=== PATIENT | male | born 1945 | race Caucasian/White ===

== ENCOUNTER 2023-10-01 09:06 | Day surgery (SDC) | payer MEDICARE, SELFPAY ==
--- NOTE | 2023-09-28 10:48 | EKG12_ITS ---
Test Reason : PRE-OP Blood Pressure : / mmHG Vent. Rate : 066 BPM Atrial Rate : 066 BPM P-R Int : 144 ms QRS Dur : 080 ms QT Int : 406 ms P-R-T Axes : 031 -04 005 degrees QTc Int : 425 ms Sinus rhythm with marked sinus arrhythmia with occasional Premature ventricular complexes Otherwise normal ECG Confirmed by PRAMOD COOPER, CHINO ([id number]), fan mail editor KEKE PACHECO ([id number]) on 10/01/2023 8:21:54 AM Referred By: LALA Confirmed By:DILLAN BENAVIDEZ MD
[2023-09-28 11:07] LABS: Hematocrit 43.7 % (40-54); Hemoglobin 14.5 g/dL (13.0-16.5); Mean Corp Hgb Conc 33.2 g/dL (32-36); Mean Corpuscular Hgb 30.9 pg (27.0-32.0); Mean Platelet Vol. 10.4 fl (6.2-12.0); Platelet Count 202 K/mm3 (150-450); RBC Distribution Width CV 12.7 % (11.6-14.6); RBC Distribution Width SD 43.6 fl (35.1-43.9); White Blood Count 6.3 K/mm3 (4.4-11.0)
[2023-09-28 11:48] LABS: Anion Gap 8 (5-15); BUN 22 mg/dL (7-18); BUN/Creat Ratio 23.6 RATIO (10-20); Calcium,Total 8.6 mg/dL (8.5-10.1); Chloride 107 mmol/L (98-107); Creatinine, Serum 0.93 mg/dL (0.70-1.30); EST Glomerular Filtration Rate 84 mL/min (>60); Est Glom Filt Rate - Afr Amer 101 mL/min (>60); Glucose 103 mg/dL (74-106); Sodium Level 141 mmol/L (136-145)
[2023-10-01] VITALS (8 sets, daily range): BP systolic 105–155; BP diastolic 62–89; PULSE 58–70; RESP 16–18; TEMP 36.1–36.9; O2SAT 93–99; BMI 24.3
[2023-10-01] MEDS: Lactated Ringers 1,000 ML 15 ML IV (09:52)
--- NOTE | 2023-10-01 10:31 | PCM.HP.BLA ---
History and Physical Date of Admission: 10/01/23 Visit Reasons: Hernia Chief Complaint: hernia Is patient in pain?: No Allergies No Known Allergies Allergy (Verified 08/25/13 09:05) Medications Multivits,Ca,Minerals/Iron/FA 08/25/13 [History Confirmed 08/23/23] lisinopril 10 mg tablet 10 mg PO DAILY 08/25/13 [History Confirmed 08/23/23] omega-3 fatty acids 300 mg capsule (Fish Oil) 300 mg PO 08/25/13 [History Confirmed 08/23/23] antiarthritic combination no.2 900 mg tablet (glucosamine-chondroitin) mg PO 08/23/23 [History Confirmed 08/23/23] ascorbic acid (vitamin C) 500 mg capsule mg PO 08/23/23 [History Confirmed 08/23/23] cholecalciferol (vitamin D3) 25 mcg (1,000 unit) capsule 25 mcg PO DAILY 08/23/23 [History Confirmed 08/23/23] coenzyme Q10 75 mg capsule (Ultra CoQ10) 75 mg PO DAILY 08/23/23 [History Confirmed 08/23/23] PFSH Surgical History (Updated 08/23/23 @ 15:25 by Ada Zamora) History of hip replacement, total Family History (Updated 08/23/23 @ 15:26 by Ada Zamora) Sister Breast cancerFather Cancer prostate Social History (Updated 08/23/23 @ 15:27 by Ada Zamora) Smoking Status: Never smoker alcohol intake: current substance use type: does not use HPI HPI HPI: 78-year-old gentleman presents to discuss potential surgical treatment of an inguinal hernia. Patient is referred by retired physician Dr. Sachin Messina and and his primary care physician resides in [place]. Patient is a very active 78-year-old gentleman. At least a year ago he noticed a bulge in the right groin its been progressively enlarging and now becoming intermittently tender. Is worse with standing's slightly better when he walks. 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 He does take fish oil and he is asked to put a hold of that. He states that he has been having some urinary troubles and was wondering if that could be related to the hernia. ROS General General: No weight change, appetite, fatigue, colon cancer, breast cancer or weakness HEENT HEENT: Yes eye surgery; No difficulty swallowing, eye injury, swollen glands or hoarseness Endo Endocrine: No thyroid disease, diabetes mellitus, thyroid cancer, Hair loss, heat intolerance or cold intolerance Skin Skin: No rash or changing moles Musc Musculoskeletal: Yes back problems and arthritis; No rheumatoid arthritis, gout or joint pain Cardio Cardiovascular: Yes high blood pressure; No murmur, pacemaker, heart disease, atrial fibrillation, heart attack, heart stent, palpitations, shortness of breat with exertion or chest pain Psych Psychiatric: No depression, anxiety or hearing voices Resp Respiratory: No shortness of breath, No sleep apnea, No cough, No COPD, No asthma, No emphysema and No wheezing Gastro Gastrointestinal: No abdominal pain, No nausea or vomiting, No diarrhea, No constipation, No blood in stool, No acid reflux, No hemorrhoids, No ulcers, No gallbladder problem and No black,tarry stools Danielito Hematologic: No blood thinners, No blood disorders, No bleeding, No anemia and No blood clots Neuro Neurologic: No system reviewed and no additional complaints, except as documented, No as per HPI, No abnormal gait, No abnormal hearing, No abnormal movements, No abnormal speech, No behavioral changes, No burning sensations, No confusion, No convulsions, No disequilibrium, No dizziness, No localized weakness, No frequent falls, No headache(s), No lack of coordination, No loss of vision, No memory loss, No numbness, No other visual disturbances, No radicular pain, No restless legs, No sensory deficit, No syncope, No tingling, No tremor(s), No weakness and No other Exam Const General: cooperative, healthy appearing, comfortable and no acute distress Orientation: alert and awake [facility] Head: normal to inspection Other: Transfers suprasternal incision. Eyes General: appearance normal, both eyes and all related structures Neck Neck: normal visual inspection Chest Chest palpation & inspection: normal inspection of the chest Resp Effort & Inspection: normal respiratory effort Auscultation: clear to auscultation bilaterally Cardio Rate: regular rate Rhythm: regular rhythm GI Palpation: soft and no hepatosplenomegaly Other: Nonreducible 2 cm diameter umbilical hernia Other: Large though reducible right inguinal hernia. Testicles descended bilaterally. Very slight give left groin. Skin General: no rashes or lesions noted Neuro General: patient alert, patient awake and patient oriented x3 Extrem General: no calf tenderness Psych Appearance: grossly normal Assessment and Plan Assessment and Plan (1) Hernia: (2) Inguinal hernia of right side without obstruction or gangrene: Status: Acute (3) Umbilical hernia without obstruction or gangrene: Status: Acute (4) Urinary retention: Status: Acute Plan: Work around theI recommend to the patient laparoscopic right inguinal hernia repair with mesh. The left groin will be inspected and if indeed a left inguinal hernia is identified and the patient requests I proceed at the same time with a laparoscopic left inguinal hernia repair with mesh. I anticipate performing an umbilical herniorrhaphy and at that time deciding whether mesh is or is not used. He is aware of the technique, benefit, risk, alternatives. 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 He and his also tend to live and would rise in [place]. Patient's urinary symptoms will be treated with Flomax 0.4 mg nightly to start 2 weeks preoperatively. 30 tablets supply. He has had an opportunity to ask and have questions answered. Appreciate the opportunity of assisting with the surgical care. We will schedule procedure at his discretion. Navi Zaragoza M.D., F.A.C.S I have examined the patient and the H&P has been reviewed. There are no clinical changes since date of exam. He continues to have intermittent discomfort in the right groin particularly with coughing and sneezing. He is aware that we anticipate repairing his umbilical hernia and right inguinal hernia and will inspect the left groin at the same setting and repair that if indicated. His health otherwise remains constant. Navi Zaragoza M.D., F.A.C.S.
--- NOTE | 2023-10-01 10:49 | DCINST_ITS ---
Discharge Instructions Procedure General Surgery Diet Discharge Diet: Light diet - advance as tolerated (if you have questions about your diet instructions, please talk to you doctor.) Activity Discharge Activity: May Not Drive (for 3-5 days or while taking narcotic pain medicine.) May shower in (days): 1 Lifting Restrictions: 10 pounds Dressing / Incision Call your doctor if your incision/area has: Continuous Slow Oozing, Sudden Increased Bleeding, Increased Pain/ Swelling, Increased Redness and Foul Smelling Discharge Call your doctor if you observe: Fever of 101 or Higher Suture Line Care: Avoid Pulling/Pushing and Avoid Pinching/Bending Additional Dressing/Incision Instructions:: Change or remove dressing in 4 days. Leave steri-strips in place for 1 week. Follow Up Care Please Follow Up With: Navi Zaragoza MD When: Call [phone] to make an appointment to be seen on Sunday10/08/23 for suture removal Test Results: Test results from this visit will be discussed in further detail at your follow- up appointment, if applicable. Discharge Plan Admission Primary Reason for Your Visit: Right inguinal hernia/umbilical hernia Attending Provider: Navi Zaragoza Primary Care Provider: Care Physician,No Primary Discharge Orders/Prescriptions Prescriptions: New hydrocodone-acetaminophen 5-325 mg tablet 1 tab PO Q6H PRN (Reason: pain) 2 Days Qty: 5 0RF Continued Ultra CoQ10 75 mg capsule 75 mg PO DAILY glucosamine-chondroitin 900 mg tablet 900 mg PO DAILY ascorbic acid (vitamin C) 500 mg capsule 500 mg PO DAILY cholecalciferol (vitamin D3) 25 mcg (1,000 unit) capsule 25 mcg PO DAILY lisinopril 10 MG tablet 10 mg PO DAILY Fish Oil 300 MG capsule 300 mg PO DAILY Multivits,Ca,Minerals/Iron/FA 1 tab PO DAILY tamsulosin 0.4 mg capsule 0.4 mg PO QHS Qty: 30 0RF Rx Instructions: Take two weeks prior to surgery. Other Ambulatory Orders: 12 Lead EKG (Routine) Timeframe: [id number] Location: None Selected Ordered By: Dr. Navi Zaragoza Disposition Disposition (needs filled in before D/C Order can be placed): Home, Self Care
[2023-10-01] MEDS: Cefazolin 2 GM in 0.9% Normal Saline (100mL Bag) 100 ML IV (10:50)
--- NOTE | 2023-10-01 12:57 | OP.PCM_ITS ---
Report of Operation Date of Procedure: 10/01/23 Pre-Operative Diagnosis: Direct right inguinal hernia and umbilical hernia Post-Operative Diagnosis: Bilateral direct inguinal hernias and umbilical hernia Surgery/Procedure Performed:: Laparoscopic bilateral inguinal herniorrhaphy with Bard 3D max extra-large mesh Umbilical herniorrhaphy with [address] mesh Right groin Lot number [id number], reference [id number], expiry date 05/16/2028 Left lot number [id number], reference [id number], expiry date 11/15/[address] Lot number [id number], reference [id number], expiry date 03/16/2025 Secure strap Lot number [id number], expiry date February 2025 Description of Surgical Findings:: Timeout informed consent was obtained. 78-year-old gentleman was taken to the operating placed on the table underwent general endotracheal intubation es thesia. Ancef 2 g were given intravenously. The abdomen sterilely prepped and draped. 0.5% Marcaine was used as a local anesthetic. Skin sites were Ann size. Throughout the procedure a total of 30 cc was used. A curvilinear incision was made at the inferior portion of the umbilicus it was notable that the umbilical defect measured approximately 3.5 cm in diameter. There was lack of superior fascia and tedious sharp dissection was required to elevate enough that umbilical skin to gain access to the remaining abdominal Fitzgerald catheter was inserted and the abdomen was insufflated with CO2 to a pressure of 10 mmHg pressure. 5 mm trocars were placed on the right and left lower quadrant under laparoscopic visualization. Bilateral ilioinguinal nerve blocks were performed. This was done with laparoscopic visualization. There was adherence of the sigmoid colon to the left lower quadrant anterior abdominal wall. There is evidence of a direct left inguinal hernia and a sizable direct right inguinal hernia. The peritoneum superior lateral to the internal ring on the right was incised the peritoneum was carefully and completely bluntly and sharply dissected free until the direct space indirect space and femoral area was nicely identified. The similar dissection was performed on the left great care taken as the sigmoid colon was a part of that section keeping the peritoneum attached to the sigmoid as the direct indirect and femoral spaces were bluntly and sharply dissected free on the left. Access was gained retropubically. Hemostasis was intact. Peritoneum was intact. I placed a Bard 3D max extra- large mesh on the right secured laterally with secure strap placed a Bard extra- large mesh on the left it slightly overlapped the mesh from the right centrally. I secured laterally and superiorly and medially with secure strap and I finished the securement on the right as well. Excellent coverage of the defect area was achieved. The peritoneum was then approximated to itself bilaterally with secure strap and Hem-o-lilia clips. Complete obliteration to the mesh was achieved. I then freed a preperitoneal space at the umbilicus and placed an 8 cm Ventralex mesh. I secured that in place with multiple interrupted 0 Nurolon reinsufflated the abdomen and inspected and did not like the lay of the mesh so I undid the repair remove that mesh placed a new [address] mesh resecured the tails and the fascia and anterior surface of the mesh with multiple interrupted 0 Nurolon sutures. Reinspected the mesh and could tell that it was partially tucked beneath the anterior peritoneum where possible. I made sure that the edges were flat with 2 secure strap dileep. Good positioning coverage of the defect was achieved. I would moisten the mesh to activate its surface. I then inspected and made sure that the greater omentum was overlying the small bowel posterior to the umbilical area. Inspected all sites of operation felt that all was intact hemostasis was intact there been minimal blood loss. The abdomen was allowed to deflate of the CO2. The skin edges at the umbilicus approximated several interrupted 4 Monocryl subdermal stitches and then simple sutures of 5-0 nylon. The other port sites were closed with interrupted 4-0 Monocryl subdermal stitches. It is of note that I did place an extra port site inferior to the umbilicus in an attempt to flatten the initial piece of mesh but that was not successful and then meds were converted to redoing that entire repair. Sponge and instrument and needle counts were reported to surgically correct. Blood loss minimal. Specimens none. Drains none. The patient was taken the recovery area in satisfactory addition without apparent complication Navi Zaragoza M.D., F.A.C.S. Surgeon: Navi Zaragoza Type of Anesthesia: General and Local
[2023-10-01] MEDS: Bupivacaine Mpf 0.5% 30 ML VIAL (13:00)
[2023-10-01] MEDS: Ketorolac 15 MG/ML Vial IV (13:33)
[2023-10-01] MEDS: HYDROcodone Bitartrate/Apap 5/325 Tablet PO (14:33)
== END 2023-10-01 16:09 | disposition home or self-care (01) ==
LOC: SDC 09:07 → AC 09:09
PROVIDERS: Visit Provider Surgery
PROC: (CPT 49650; principal; 2023-10-01 10:40)
DX: K40.20 Bilateral inguinal hernia, without obstruction or gangrene, not specified as recurrent (principal); K42.9 Umbilical hernia without obstruction or gangrene; R33.9 Retention of urine, unspecified; I10 Essential (primary) hypertension; M19.90 Unspecified osteoarthritis, unspecified site; Z79.899 Other long term (current) drug therapy
CPT/HCPCS: 49650; 49593; 00840; 36415; 80048; 85027; 93005; J7120; C1781; J2405